=== PATIENT | male | born 1950 | race Caucasian/White ===

== ENCOUNTER 2024-06-23 16:00 | Emergency (ER) | payer MEDICARE ==
[~2024-06-23] VITALS: Ht 170.2 cm; Wt 100.0 kg
[~2024-06-23 16:00] MED LIST: ASPI-1450 PO; CLOP75TA60 PO; ENAL2.5T71 PO
[2024-06-23 16:03] VITALS: TEMP 98.2
[2024-06-23 16:30] LABS: BASOPHILS % (AUTO) 0.8 % (0.0-2.0); EOSINOPHILS % (AUTO) 4.3 % (1.0-6.0); HEMATOCRIT 39.9 % (41-53); LYMPHOCYTES # (AUTO) 2.3 K/uL (1.0-4.8); LYMPHOCYTES % (AUTO) 23.9 % (22.0-44.0); MEAN CORPUSCULAR HGB CONC 32.7 G/dL (31.0-37.0); MEAN CORPUSCULAR VOLUME 89 fL (80-100); MONOCYTES # (AUTO) 0.6 K/uL (0.1-1.0); MONOCYTES % (AUTO) 6.2 % (2.0-9.0); NEUTROPHILS # (AUTO) 6.1 K/uL (1.8-7.7); NEUTROPHILS % (AUTO) 64.8 % (40.0-70.0); PLATELET COUNT (AUTO) 181 K/uL (150-450); RED CELL DISTRIBUTION WIDTH 13.9 % (11.5-14.5); WHITE BLOOD COUNT (AUTO) 9.5 K/uL (4.5-11.0)
[2024-06-23 16:33] LABS: COVID AG,FIA SOURCE NASAL SWAB
[2024-06-23 16:41] LABS: ANION GAP 9 mmol/L (8-16); CALCIUM, TOTAL 8.5 mg/dL (8.8-10.5); CARBON DIOXIDE 27 mmol/L (22-29); CHLORIDE 103 mmol/L (98-107); CREATININE 0.93 mg/dL (0.60-1.30); GLOMERULAR FILTR. RATE CALC > 60 mL/min (>60); GLUCOSE,RANDOM 98 mg/dL (70-110); POTASSIUM 4.3 mmol/L (3.5-5.1); SODIUM SERUM 139 mmol/L (136-145); UREA NITROGEN, BLOOD 16 mg/dL (7-18)
[2024-06-23 16:48] LABS: TROPONIN I-HIGH SENSITIVITY 17 ng/L (<76)
[2024-06-23 16:49] LABS: B-TYPE NATRIURETIC PEPTIDE 276 pg/mL (0-100)
[2024-06-23 16:50] LABS: SARS-COV2 (COVID) ANTIGEN,FIA Negative (Negative)
[2024-06-23 16:52] LABS: INFLUENZA TYPE A NEGATIVE FOR TYPE A (NEGATIVE); INFLUENZA TYPE B NEGATIVE FOR TYPE B (NEGATIVE)
[2024-06-23 21:39] LABS: COVID AG,FIA SOURCE NASAL SWAB
[2024-06-23 21:58] LABS: SARS-COV2 (COVID) ANTIGEN,FIA Negative (Negative)
[2024-06-23] MEDS: PredniSONE 20 MG TABLET PO ONE (22:36)
[2024-06-23] MEDS: AZITHROMYCIN 500 MG TABLET PO ONE (22:36)
[2024-06-23] MEDS: CefTRIAXone 1 GM/DEXTROSE 50 ML IV ONE (22:37)
[2024-06-23] MEDS: ALBUTEROL SULFATE 2.5 MG/0.5 ML NEB SOLUTION NEB ONE (22:38)
[2024-06-23 22:39] VITALS: PULSE 50; RESP 18; O2SAT 93
[2024-06-23] MEDS: IPRATROPIUM BROMIDE 0.5 MG/2.5 ML NEB SOLUTION NEB ONE (22:39)
[2024-06-23 22:54] VITALS: PULSE 46; RESP 18; O2SAT 96
[2024-06-24 01:47] VITALS: BP 162/45; PULSE 50; RESP 16; O2SAT 94
== END 2024-06-24 03:24 | disposition admitted as inpatient to this hospital (09) ==
LOC: EMS 16:00
DX: J18.9 Pneumonia, unspecified organism (principal); R06.02 Shortness of breath; R50.9 Fever, unspecified; I11.0 Hypertensive heart disease with heart failure; I50.9 Heart failure, unspecified; Z20.822 Contact with and (suspected) exposure to COVID-19
CPT/HCPCS: 99285; 96365; 71045; 80048; 83880; 84484; 85025; 87040; 87804; 36415; 94640; 93005; 87426; J0456; J0696; J7512; J7613